=== PATIENT | male | born 1985 | race Caucasian/White ===

== ENCOUNTER 2019-10-24 13:27 | Outpatient (CLI) | payer BC, SELFPAY ==
[2019-10-24 13:36] LABS: Hematocrit 48.1 % (42.0-52.0); Mean Corpuscular HGB Conc 33.3 g/dl (32-36); Mean Corpuscular Hemoglobin 29.1 pg (26-34); Mean Corpuscular Volume 87.5 fl (80-100); Platelet Count Result 226 k/mm3 (150-375); Red Cell Distribution Width 12.5 % (11.5-14.5); White Blood Count 6.6 K/mm3 (4.5-10.0)
[2019-10-24 16:08] LABS: Potassium 4.5 mmol/L (3.4-5.0)
[2019-10-24 16:18] LABS: Alanine Aminotransferase 69 U/L (4-50); Albumin Level 4.6 g/dL (3.5-5.1); Alkaline Phosphatase 55 U/L (38-126); Aspartate Amino Transferase 48 U/L (17-59); Bilirubin,Total 0.5 mg/dL (0.2-1.3); Blood Urea Nitrogen 17 mg/dL (9-20); CRP < 0.5 mg/dL (<1.0); Calcium 9.7 mg/dL (8.4-10.2); Carbon Dioxide 26 mmol/L (22-30); Chloride 104 mmol/L (98-107); Estimated Glomerular Filt Rate > 60; Glucose 121 mg/dL (75-110); Sodium 137 mmol/L (137-145)
[2019-10-24 16:20] LABS: Erythrocyte Sedimentation Rate 4 mm/hr (0-20)
== END 2019-10-24 13:28 | disposition home or self-care (01) ==
LOC: ANHLAB 13:28
PROVIDERS: PCP Family Medicine; Visit Provider Internal Medicine
DX: M47.819 Spondylosis without myelopathy or radiculopathy, site unspecified (principal); M06.9 Rheumatoid arthritis, unspecified
CPT/HCPCS: 36415; 80053; 85027; 85652; 86140

== ENCOUNTER 2020-12-15 07:58 | Outpatient (CLI) | payer BC, SELFPAY ==
--- NOTE | ~2020-12-15 | MR_ITS ---
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 TECHNIQUE: Magnetic resonance imaging (MRI) of the sacrum and coccyx was performed without intravenou s contrast. Sequences included sagittal PD-weighted FSE; oblique axial T1-weighted FSE, T2-weighted FS FSE and T1-weighted FS FSE ; oblique coronal T2-weighted FSE, T1-weighted FSE and T2-weighted FS F SE. The study was initially ordered as a with and without MRI. The patient received 20 mL Multihance but no imaging was obtained as the patient experienced a moderate to severe contrast allergy characterize d by nausea with emesis as well as shortness of breath and stridor with difficulty with expiration. I went to see the patient. In moderate distress with facial erythema, reportedly new onset nasal conge stion with mucous production and with mildly shallow and tachypnea and respiration but still setting 98% on room air. Heart rate and rhythm were normal. Decreased breath sounds but no wheezes on auscult ation. Response was called and the patient was immediately transferred to the emergency department fo r monitored steroid and epinephrine administration. See ED note for further detail. Given the severit y of the contrast reaction, MultiHance intravenous contrast should be avoided. Would also recommend a voiding other gadolinium contrast agents even with premedication unless absolutely required with bene fits of use clearly outweighing the significant risk of potentially life-threatening contrast reactio n. COMPARISON: Sacroiliac joint radiographs dated 08/27/2018 FINDINGS: Bilateral sacroiliac spaces remain normal with no abnormal widening or narrowing . There is a tiny er osion versus more likely degenerative subarticular cystic change at the iliac side of the caudal-most left sacroiliac joint. No other erosions or abnormal subarticular marrow signal changes. Mild bilate ral lower lumbar facet osteoarthritis. Mild disc height loss at L3-L4 with annular fissure and left f oraminal zone disc extrusion resulting in moderate to severe left neural foraminal stenosis. Mild to moderate disc height loss at L4-L5 with additional broad-based central disc extrusion extending from foraminal zone to foraminal zone with disc material centrally extending up to 3 mm cephalad to and 5 mm caudal to the level of the endplates an resulting in mild central canal stenosis. There is moderat e bilateral neural foraminal stenosis at this level. Mild disc bulge at L5-S1 without central canal o r neural foraminal stenosis. 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 The bladder, prostate and visualized bowels in the pelvis are unremarkable. IMPRESSION: 1. Mild lower lumbar spondylosis with annular fissures and disc extrusions at L3-L4 and L4-L5 contrib uting to mild central canal stenosis at L4-L5 and moderate to severe neural foraminal stenosis on the left at L4-L5 and moderate bilateral neural foraminal stenosis at L4-L5. 2. Tiny likely degenerative subchondral cystic change versus chronic erosion at the inferior aspect o f the left sacroiliac joint. Otherwise normal bilateral sacroiliac joints. 3. Moderate to severe contrast reaction to MultiHance intravenous contrast. This occurred prior to ob taining contrast-enhanced imaging. Patient was transferred to the emergency department with improveme nt following administration of Benadryl, Solu-Medrol and epinephrine. See technique section for furth er detail and for recommendations regarding subsequent use of MR contrast agent. Reviewed, dictated and finalized at location A. IMPRESSION: 1. Mild lower lumbar spondylosis with annular fissures and disc extrusions at L 3-L4 and L4-L5 contributing to mild central canal steno
[2020-12-15 08:32] LABS: Estimated Glomerular Filt Rate > 60
== END 2020-12-15 07:59 | disposition home or self-care (01) ==
PROVIDERS: PCP Family Medicine; Visit Provider Internal Medicine
DX: M47.816 Spondylosis without myelopathy or radiculopathy, lumbar region (principal); M48.061 Spinal stenosis, lumbar region without neurogenic claudication
CPT/HCPCS: 72197; A9577

== ENCOUNTER 2020-12-15 09:24 | Emergency (ER) | payer BC, SELFPAY ==
[2020-12-15] VITALS (13 sets, daily range): BP systolic 128–168; BP diastolic 66–106; PULSE 72–96; RESP 9–19; O2SAT 97–100
[2020-12-15] MEDS: diphenhydrAMINE HCl INJ 50 MG/ML VIAL IV PUSH (09:30)
[2020-12-15] MEDS: methylPREDNISolone SOD SUCC 125 MG VIAL IV PUSH (09:30)
[2020-12-15] MEDS: EPINEPHrine HCL INJ 1 MG/ML AMPUL 0.3 MG IM (09:30)
--- NOTE | 2020-12-15 09:36 | ED.ALLEREA ---
HPI - Allergic Reaction General Chief complaint: Allergic Reaction Stated complaint: Unspecified Time Seen by Provider: 12/15/20 09:36 Source: patient Mode of arrival: wheelchair Limitations: no limitations History of Present Illness HPI narrative: Patient is 35 years old white male brought to the emergency room by wheelchair from the radiology department after receiving IV contrast for MRI, within few minutes patient developed trouble breathing, nasal congestion, swollen eyelids, erythematous changes of the face. Patient denies having similar symptoms in the past. History of pollen allergy. History of rheumatoid arthritis. Does not smoke or using drugs, drinks occasionally Related Data Allergies Allergy/AdvReac Type Severity Reaction Status Date / Time Iodinated Contrast Media Allergy Difficulty Verified 12/15/20 09:37 Breathing Review of Systems Review of Systems: Narrative: CONSTITUTIONAL: Denies fever, chills, or sweats. EYES: Denies visual changes, redness, or discharge. ENT: Denies rhinorrhea, congestion, sore throat, or otalgia. CARDIOVASCULAR: Denies chest pain, palpitations, or edema. RESPIRATORY: Denies cough or dyspnea. GASTROINTESTINAL: Denies abdominal pain, nausea, vomiting, or diarrhea. GENITOURINARY: Denies dysuria or hematuria. SKIN: Denies rash or itching. MUSCULOSKELETAL: Denies back pain, joint pain, or myalgia. NEUROLOGIC: Denies headache, numbness, or weakness. PSYCHIATRIC: Denies anxiety or depression. [facility] Past Medical History Medical History (Updated 12/15/20 @ 12:38 by Sanya Farris MD) Allergic Arthritis Family History Family History Father Cerebrovascular accident Social History Social History Alcohol intake: never Exam Narrative: Exam Narrative: General appearance: Well-developed, well-nourished Skin: Redness, swelling eyelids and face, Head: Normocephalic, nontraumatic Eyes: Clear conjunctiva ENT: Oropharynx normal, ears normal, nasal congestion with frequent blowing his nose Neck: Supple, nontender Chest and respiratory: Airway patent, no respiratory distress, no accessory muscle use Heart: Regular rate/rhythm Abdomen: Soft, nontender, no organomegaly, quiet bowel sounds Vascular: Normal peripheral pulses, normal capillary refill. 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 Date: 12/15/20 Time: 12:36 Vital Signs Vital signs: Vital Signs Pulse Rate 78 12/15/20 09:29 Respiratory Rate 16 12/15/20 09:29 Blood Pressure 168/106 H 12/15/20 09:29 Pulse Oximetry 98 12/15/20 09:29 Pulse Rate 96 12/15/20 11:03 Respiratory Rate 19 12/15/20 11:03 Blood Pressure 159/85 H 12/15/20 10:32 Pulse Oximetry 99 12/15/20 11:03 MDM - Allergic Reaction MDM Narrative Medical decision making narrative: Contrast allergy. IV Solu-Medrol 125 mg, IV Benadryl 50 mg, 0.3 mg of epinephrine IM. Ordered. Patient received 0.5 mg of epinephrine IM because his symptoms did not improve completely after the first 0.3. Differential Diagnosis Differential diagnosis: Likely anaphylaxis, allergic reaction and adverse reaction to drug Critical Care Time Critical Care Time Critical Care Time: Yes Total Critical Care Time: 35 Discharge Plan Discharge Clinical Impression: Adverse reaction to drug Qualifiers:
[2020-12-15] MEDS: EPINEPHrine HCL INJ 1 MG/ML AMPUL 0.5 MG IM (10:15)
--- NOTE | 2020-12-15 10:15 | PC.NURSE ---
pt states is having more congestion and difficulty breathing along with a headache. dr. garcia informed and meds given per order. at bedside.
[2020-12-15] MEDS: ACETAMINOPHEN 325 MG TABLET 650 MG PO (10:21)
== END 2020-12-15 12:50 | disposition home or self-care (01) ==
PROVIDERS: Emergency Provider Emergency Medicine; PCP Family Medicine
DX: R06.00 Dyspnea, unspecified (principal); T50.905A Adverse effect of unspecified drugs, medicaments and biological substances, initial encounter
CPT/HCPCS: 96372; 96374; 96375; 99284; A9270; J0171; J1200; J2930

== ENCOUNTER 2020-12-16 09:22 | Outpatient (CLI) | payer BC, SELFPAY ==
[2020-12-16 09:41] LABS: Basophils Percent Auto 0.1 % (0.2-1.2); Hematocrit 48.1 % (42.0-52.0); Hemoglobin 15.9 g/dL (14.0-18.0); Immature Granulocyte Absolute 0.08 K/mm3 (0.00-0.031); Immature Granulocyte Percent A 0.4 % (0-0.5); Lymphocytes Percent Auto 10.8 % (18.3-44.2); Mean Corpuscular HGB Conc 33.1 g/dl (32-36); Mean Corpuscular Hemoglobin 28.9 pg (26-34); Mean Corpuscular Volume 87.5 fl (80-100); Mean Platelet Volume 10.7 fl (7.4-10.4); Monocytes Absolute Auto 1.1 K/mm3 (0.1-0.6); Monocytes Percent Auto 5.5 % (2.6-8.5); Neutrophils Absolute Auto 16.2 K/mm3 (1.3-6.7); Neutrophils Percent Auto 83.2 % (45.5-73.1); Platelet Count Result 300 k/mm3 (150-375); White Blood Count 19.5 K/mm3 (4.5-10.0)
[2020-12-16 11:17] LABS: Erythrocyte Sedimentation Rate 3 mm/hr (0-20)
[2020-12-20 19:23] LABS: CRP, High Sensitivity 0.6 mg/L (***)
== END 2020-12-16 09:23 | disposition home or self-care (01) ==
PROVIDERS: PCP Family Medicine; Visit Provider Internal Medicine
DX: M47.819 Spondylosis without myelopathy or radiculopathy, site unspecified (principal); Z71.89 Other specified counseling; Z79.899 Other long term (current) drug therapy
CPT/HCPCS: 36415; 85025; 85652; 86141

== ENCOUNTER 2020-12-20 08:58 | Outpatient (CLI) | payer BC, SELFPAY ==
[2020-12-20 14:30] LABS: Hepatitis B Surface Antigen Negative (Negative)
[2020-12-20 14:50] LABS: Hepatitis B Surface Anti Res Positive; Hepatitis C Virus Antibody Negative (Negative)
[2020-12-23 12:03] LABS: NIL 0.03 IU/mL; Quantiferon TB Plus, 1T NEGATIVE (NEGATIVE); TB1-NIL <0.00 IU/mL
== END 2020-12-20 08:59 | disposition home or self-care (01) ==
PROVIDERS: PCP Family Medicine; Visit Provider Internal Medicine
DX: M47.819 Spondylosis without myelopathy or radiculopathy, site unspecified (principal); Z11.59 Encounter for screening for other viral diseases
CPT/HCPCS: 36415; 86480; 86706; 86803; 87340

== ENCOUNTER 2022-11-17 09:24 | Outpatient (CLI) | payer BC, SELFPAY ==
[2022-11-17 11:09] LABS: Alanine Aminotransferase 37 U/L (6-50); Albumin Level 4.6 g/dL (3.5-5.1); Alkaline Phosphatase 47 U/L (38-126); Anion Gap 6 mmol/L (8-16); Aspartate Amino Transferase 35 U/L (17-59); Bilirubin,Total 0.5 mg/dL (0.2-1.3); Blood Urea Nitrogen 19 mg/dL (9-20); Calcium 9.1 mg/dL (8.4-10.2); Carbon Dioxide 30 mmol/L (22-30); Chloride 103 mmol/L (98-107); Cholesterol 128 mg/dL (0-200); Estimated Glomerular Filt Rate > 60; Glucose 118 mg/dL (65-110); HDL Direct 41 mg/dL; Potassium 4.1 mmol/L (3.4-5.0); Sodium 139 mmol/L (137-145); Triglycerides 139 mg/dL (<150)
[2022-11-17 11:19] LABS: LDL Cholesterol Direct 66 mg/dL
[2022-11-17 12:34] LABS: Hemoglobin A1C 5.4 % (<5.7)
== END 2022-11-17 09:25 | disposition home or self-care (01) ==
LOC: ANHLAB 09:26
PROVIDERS: Nurse Practitioner Family; PCP Family Medicine Adolescent Medicine; Visit Provider Internal Medicine Hematology & Oncology
DX: E11.9 Type 2 diabetes mellitus without complications (principal)
CPT/HCPCS: 36415; 80053; 80061; 82607; 83036; 86337

== ENCOUNTER 2023-10-09 15:15 | Emergency (ER) | payer BC, SELFPAY ==
--- NOTE | ~2023-10-09 | CT_ITS ---
EXAMINATION: CT facial bones wo con DATE: 10/09/2023 15:39 INDICATION: trauma . TECHNIQUE: Computed tomography (CT) of the facial bones and maxillofacial region was performed with i ntravenous contrast. Automated exposure control and iterative reconstruction technique were employed. The dose-length product was 585.80 mGy-cm. COMPARISON: None. FINDINGS: Soft Tissues: Scattered areas of soft tissue swelling over the brow and chin. Facial bones: No acute fracture. No lytic or blastic process. Eyes: The globes are intact. The soft tissue planes of the orbits are maintained. Paranasal Sinuses: Left maxillary retention cyst/polyp, left frontal, left anterior ethmoid, and rig ht maxillary mucosal thickening, the remaining aerated spaces are clear. Foreign Bodies: No radiopaque foreign bodies. Other Findings: Dental caries. IMPRESSION: No evidence of acute facial bone fracture. Reviewed, dictated and finalized at location K.
[2023-10-09 15:15] VITALS: BP 140/91; PULSE 69; RESP 18; TEMP 36.6; O2SAT 99
--- NOTE | 2023-10-09 15:20 | ED.GENADULT ---
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 He denies other injuries. Related Data Allergies Allergy/AdvReac Type Severity Reaction Status Date / Time secukinumab [From Cosentyx] Allergy Intermediate Swelling Verified 08/30/23 10:03 Iodinated Contrast Media Allergy Difficulty Verified 08/30/23 10:03 Breathing Review of Systems Review of Systems: All systems reviewed & are unremarkable except as noted in HPI and below PMFSH Past Medical History Medical History Allergic Arthritis Encounter for screening for other viral diseases Family History Family History Father Cerebrovascular accident Social History Social History Smoking packs per day: 0.5 Smoking cigarettes per day: 10.0 Years smoked: 10 Smoking pack-years: 5.00 Smoking status: Former smoker Tobacco type: cigarettes Smokeless tobacco user: chewing tobacco Alcohol intake: never Lack of Transportation: No Lack of Food: Never True Current Housing: I Have Housing Concerned About Future Housing: No Difficulty Paying Gas/Electric Bills: No Difficulty Paying for Meds: YES Currently Unemployed: No Education: High School Diploma/GED Difficulty w/ Childcare or Family Care: No Spiritual care concerns: No Exam Narrative: General appearance: Well-developed, well-nourished Skin: Normal color Head: Normocephalic, nontraumatic Eyes: Clear conjunctiva ENT: Oropharynx normal, ears normal, nose normal , slight bruises and the inferior area of the left side of the jaw, patient able to open and close mouth without restriction also to move the jaw in different directions without any restriction Neck: Supple, nontender Chest and respiratory: Airway patent, no respiratory distress, no accessory muscle use Heart: Regular rate/rhythm Abdomen: Soft, nontender, no organomegaly, quiet bowel sounds Vascular: Normal peripheral pulses, normal capillary refill. 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 Critical Care Time Critical Care Time Critical Care Time: No Discharge Plan Discharge Clinical Impression: Contusion of jaw Patient Disposition: Home, Self-Care Condition: Stable Instructions: Facial Contusion (ED) Additional Instructions: Return if symptoms are worsening , call your family physician for appointment, take Tylenol as as needed for aches and pain, continue home medications., ibuprofen 600 every 6 hours as needed Prescriptions: No Action metformin 500 mg tablet 500 mg PO DAILY Qty: 90 3RF sulfasalazine 500 mg tablet,delayed release (DR/EC) See Rx Instructions .ROUTE .COMPLEX Qty: 60 0RF Dose Instruction: TAKE ONE TABLET BY MOUTH TWICE A DAY Rx Instructions: TAKE ONE TABLET BY MOUTH TWICE A DAY Enbrel Mini 50 mg/mL (1 mL) cartridge See Rx Instructions .ROUTE .COMPLEX Qty: 4 11RF Dose Instruction: INJECT 50 MG (1 ML) UNDER THE SKIN WEEKLY Rx Instructions: INJECT 50 MG (1 ML) U
== END 2023-10-09 15:57 | disposition home or self-care (01) ==
PROVIDERS: Emergency Provider Emergency Medicine; PCP Nurse Practitioner Family
DX: S00.83XA Contusion of other part of head, initial encounter (principal); W22.8XXA Striking against or struck by other objects, initial encounter; F17.220 Nicotine dependence, chewing tobacco, uncomplicated
CPT/HCPCS: 70486; 99284

== ENCOUNTER 2024-04-22 16:16 | Outpatient (CLI) | payer BC, SELFPAY ==
[2024-04-22 16:28] LABS: Basophils Absolute Auto 0.1 K/mm3 (0.0-0.1); Basophils Percent Auto 0.9 % (0.2-1.2); Eosinophils Absolute Auto 0.3 K/mm3 (0-0.3); Eosinophils Percent Auto 4.3 % (0-4.4); Hematocrit 50.1 % (42.0-52.0); Hemoglobin 16.7 g/dL (14.0-18.0); Immature Granulocyte Absolute 0.01 K/mm3 (0.00-0.031); Immature Granulocyte Percent A 0.1 % (0-0.5); Lymphocytes Absolute Auto 4.11 K/mm3 (0.9-3.2); Lymphocytes Percent Auto 53.4 % (18.3-44.2); Mean Corpuscular HGB Conc 33.3 g/dl (32-36); Mean Corpuscular Hemoglobin 29.5 pg (26-34); Mean Corpuscular Volume 88.4 fl (80-100); Mean Platelet Volume 10.6 fl (7.4-10.4); Monocytes Absolute Auto 0.6 K/mm3 (0.1-0.6); Monocytes Percent Auto 8.1 % (2.6-8.5); Neutrophils Absolute Auto 2.6 K/mm3 (1.3-6.7); Neutrophils Percent Auto 33.2 % (45.5-73.1); Platelet Count Result 234 k/mm3 (150-375); Red Blood Count 5.67 M/mm3 (4.6-6.20); Red Cell Distribution Width 13.1 % (11.5-14.5); White Blood Count 7.7 K/mm3 (4.5-10.0)
[2024-04-22 16:36] LABS: Hemoglobin A1C 6.3 % (<5.7)
[2024-04-22 16:56] LABS: Alanine Aminotransferase 53 U/L (6-50); Albumin Level 4.3 g/dL (3.5-5.1); Alkaline Phosphatase 46 U/L (38-126); Anion Gap 5 mmol/L (4-12); Aspartate Amino Transferase 45 U/L (17-59); Bilirubin,Total 0.8 mg/dL (0.2-1.3); Blood Urea Nitrogen 12 mg/dL (9-20); Calcium 9.2 mg/dL (8.4-10.2); Carbon Dioxide 30 mmol/L (22-30); Chloride 105 mmol/L (98-107); Cholesterol 159 mg/dL (0-200); Estimated Glomerular Filt Rate > 60; Glucose 106 mg/dL (65-110); HDL Direct 46 mg/dL; Sodium 140 mmol/L (137-145); Triglycerides 286 mg/dL (<150)
[2024-04-22 17:10] LABS: LDL Cholesterol Direct 78 mg/dL
== END 2024-04-22 16:17 | disposition home or self-care (01) ==
LOC: ANHLAB 16:17
PROVIDERS: PCP Nurse Practitioner Family; Visit Provider Nurse Practitioner Family
DX: E11.9 Type 2 diabetes mellitus without complications (principal)
CPT/HCPCS: 36415; 80053; 80061; 82607; 83036; 85025

== ENCOUNTER 2024-05-13 11:32 | Outpatient (CLI) | payer BC, SELFPAY ==
[2024-05-13 12:19] LABS: Basophils Absolute Auto 0.1 K/mm3 (0.0-0.1); Basophils Percent Auto 0.8 % (0.2-1.2); Eosinophils Absolute Auto 0.2 K/mm3 (0-0.3); Eosinophils Percent Auto 2.3 % (0-4.4); Hematocrit 47.5 % (42.0-52.0); Hemoglobin 15.6 g/dL (14.0-18.0); Immature Granulocyte Absolute 0.03 K/mm3 (0.00-0.031); Immature Granulocyte Percent A 0.3 % (0-0.5); Lymphocytes Absolute Auto 3.91 K/mm3 (0.9-3.2); Lymphocytes Percent Auto 37.9 % (18.3-44.2); Mean Corpuscular HGB Conc 32.8 g/dl (32-36); Mean Corpuscular Hemoglobin 29.2 pg (26-34); Mean Platelet Volume 10.9 fl (7.4-10.4); Monocytes Absolute Auto 1.1 K/mm3 (0.1-0.6); Monocytes Percent Auto 10.2 % (2.6-8.5); Neutrophils Percent Auto 48.5 % (45.5-73.1); Platelet Count Result 239 k/mm3 (150-375); Red Blood Count 5.34 M/mm3 (4.6-6.20); Red Cell Distribution Width 13.2 % (11.5-14.5); White Blood Count 10.3 K/mm3 (4.5-10.0)
[2024-05-13 12:33] LABS: Alanine Aminotransferase 50 U/L (6-50); Albumin Level 4.9 g/dL (3.5-5.1); Alkaline Phosphatase 57 U/L (38-126); Anion Gap 4 mmol/L (4-12); Aspartate Amino Transferase 39 U/L (17-59); Blood Urea Nitrogen 16 mg/dL (9-20); Calcium 9.6 mg/dL (8.4-10.2); Carbon Dioxide 29 mmol/L (22-30); Chloride 105 mmol/L (98-107); Estimated Glomerular Filt Rate > 60; Glucose 111 mg/dL (65-110); Potassium 4.6 mmol/L (3.4-5.0); Sodium 138 mmol/L (137-145); Uric Acid 7.7 mg/dL (3.5-8.5)
== END 2024-05-13 11:33 | disposition home or self-care (01) ==
LOC: ANHLAB 11:33
PROVIDERS: PCP Nurse Practitioner Family; Visit Provider Nurse Practitioner Family
DX: M10.9 Gout, unspecified (principal)
CPT/HCPCS: 36415; 80053; 84550; 85025

== ENCOUNTER 2024-09-08 15:44 | Outpatient (CLI) | payer BC, SELFPAY ==
[2024-09-08 16:22] LABS: Basophils Absolute Auto 0.1 K/mm3 (0.0-0.1); Eosinophils Absolute Auto 0.5 K/mm3 (0-0.3); Eosinophils Percent Auto 8.6 % (0-4.4); Hemoglobin 16.2 g/dL (14.0-18.0); Immature Granulocyte Absolute 0.01 K/mm3 (0.00-0.031); Immature Granulocyte Percent A 0.2 % (0-0.5); Lymphocytes Absolute Auto 2.86 K/mm3 (0.9-3.2); Lymphocytes Percent Auto 45.5 % (18.3-44.2); Mean Corpuscular HGB Conc 33.1 g/dl (32-36); Mean Corpuscular Hemoglobin 29.8 pg (26-34); Mean Corpuscular Volume 90.2 fl (80-100); Mean Platelet Volume 10.8 fl (7.4-10.4); Monocytes Absolute Auto 0.6 K/mm3 (0.1-0.6); Neutrophils Absolute Auto 2.2 K/mm3 (1.3-6.7); Neutrophils Percent Auto 34.7 % (45.5-73.1); Platelet Count Result 223 k/mm3 (150-375); Red Blood Count 5.43 M/mm3 (4.6-6.20); White Blood Count 6.3 K/mm3 (4.5-10.0)
[2024-09-08 16:25] LABS: Add Urine Microscopic? NO; Appearance Urine Clear (Clear); Bilirubin Urine Negative (Negative); Blood Urine Negative (Negative); Color Urine Yellow (Yellow); Glucose Urine UA Negative (Negative); Ketones Urine Negative (Negative); Leukocyte Esterase Ur Negative LEU/UL (Negative); Nitrate Urine Negative (Negative); Protein Urine Negative (Negative); Urobilinogen Urine 0.2 mg/dL (<2.0)
[2024-09-08 16:45] LABS: Alanine Aminotransferase 76 U/L (6-50); Albumin Level 4.9 g/dL (3.5-5.1); Alkaline Phosphatase 46 U/L (38-126); Anion Gap 9 mmol/L (4-12); Aspartate Amino Transferase 44 U/L (17-59); Bilirubin,Total 0.6 mg/dL (0.2-1.3); Blood Urea Nitrogen 16 mg/dL (9-20); CRP < 0.5 mg/dL (<1.0); Calcium 9.7 mg/dL (8.4-10.2); Carbon Dioxide 28 mmol/L (22-30); Chloride 104 mmol/L (98-107); Estimated Glomerular Filt Rate > 60; Glucose 95 mg/dL (65-110); Phosphorus 3.9 mg/dL (2.5-4.5); Potassium 4.3 mmol/L (3.4-5.0); Sodium 141 mmol/L (137-145)
[2024-09-08 17:17] LABS: Erythrocyte Sedimentation Rate 4 mm/hr (0-20)
--- OUTSIDE RECORDS SUMMARY | 2024-09-08 17:28 | XMS_ITS | Encounter Summary ---
Author Organization [facility] Address [address] [place] [address] Care Team Providers Care Animal Trainer Name Role Phone Cortez Hernandez MD Primary Care Provider Encounter Details Date Type Department Care Team (Late st Contact Info) Description 03/15/[address] 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
--- OUTSIDE RECORDS SUMMARY | 2024-09-08 17:28 | XMS_ITS ---
Author Organization Unknown Address [address], [place] [id number] Phone Care Team Providers Care Metal Ceiling Builder Name Role Phone Joanna KRAMER Attending Unavailab le Immunization Immunization Date Status Additional Notes Code Code System Hep B, adolescent/high risk 12/29/1997 Completed 42 CVX Hep B, adolescent/high risk 12/01/1997 Completed 42 CVX Td (adult), 2 Lf tetanus toxoid, preservative free, adsorbed 10/27/1997 Completed 09 CVX Hep B, adolescent or pediatric 06/01/1998 Completed 08 CVX MMR 10/26/1992 Completed 03 CVX MMR 06/06/1984 Completed 03 CVX OPV 12/26/1988 Completed 02 CVX OPV 09/10/1984 Completed 02 CVX OPV 1983 Completed 02 CVX OPV 1983 Completed 02 CVX OPV 1983 Completed 02 CVX DTP 12/26/1988 Completed 01 CVX DTP 09/10/1984 Completed CVX DTP 1983 Completed CVX DTP 1983 Completed CVX DTP 1983 Completed 01 CVX Results [facility] CHEST - Completed: 02/10/2022 12:45 LOINC: Exam: Chest x-rayNo comparis onINDICATION: PreemploymentTECHNIQUE: One viewFINDINGS: Normal heart and pulmonary vessel size. The lungs are clear. No pleural fluid. Mild dextroscoliosis is partially visualized and centered at the thoracolumbar junction.IMPRESSION: No acute chest findings. Created and Electronically Signed by:Ananth Palafox MD02/10/2022 13:28 Social History Type Status Start Date End Date Code Code Syst em Smoking History Unknown if ever smoked [id number] Sex Male Hospital Discharge Instructions Should you have any questions prior to discharge, please contact a member of your healthcare team. If you have left the hospital and have any questions, please contact your primary care physician. Reason For Referral No Data Found Plan of Treatment No Data Found Encounters Encounter Diagnosis Start Date Code Code Sys tem History and physical examination, pre-employment 02/10 [id number] SNOMED-CT Personal Care Team Section Performer Name Performer Role Active Date Inactive Da te Other Physician PCP - Primary care physician 1
--- OUTSIDE RECORDS SUMMARY | 2024-09-08 17:28 | XMS_ITS | Clinical Summary ---
Author Organization [facility] Address [address] [place] [address] Care Team Providers Care Educational Institution President Name Role Phone Cortez Hernandez MD Primary Care Provider Allergies No known active allergies Medications diclofenac XR 100 MG 24 hr tablet Take 100 mg by mouth daily. 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 Gender Identity Male 12/26/2019 2:37 PM CDT Sexual Orientation Not on file Last Filed Vital Signs Vital Sign Reading Time Taken Comments Blood Pressure 155/86 01/05/2020 9:25 AM CDT Pulse 59 01/05/2020 9:25 AM CDT Temperature 36.7 C (98.1 F) 01/05/2020 9:25 AM CDT Respiratory Rate 16 01/05/2020 9:25 AM CDT Oxygen Saturation 98% 01/05/2020 9:25 AM CDT Inhaled Oxygen Concentration - - Weight 115.2 kg (254 lb) 12/31/2019 1:15 PM CDT Height 175.3 cm (5' 9 ) 12/31/2019 1:15 PM CDT Body Mass Index 37.51 12/31/2019 1:15 PM CDT Plan of Treatment Health Maintenance Due Date Last Done Comments Annual Physical 1986 Hepatitis C 2001 DTaP, Tdap and Td Vaccines (1 - Tdap) 2002 12/26/1988, 09/10/1984, 1983, Additional history exists Hepatitis B Vaccines (1 of 3 - 19+ 3-dose series) 2002 COVID-19 Vaccine (2023- season) 2024 HPV Vaccines Aged Out No longer eligi ble based on patient's age to complete this topic Meningococcal B Vaccine Aged Out No l onger eligible based on patient's age to complete this topic Meningococcal Vaccine Aged Out No karina napoleon eligible based on patient's age to complete this topic Pneumococcal Vaccine: Pediatrics (0 to 5 Years) and At-Risk Patients (6 to 49 Years) Aged Out No longer eligible based on patient's age to complete this topic RSV Immunizations Under 20 Months Aged Out No longer eligible based on patient's age to complete this topic Insurance [facility] Care Teams Educational Institution President Relationship Specialty Start Date End Date Cortez Hernandez MD [address] [place] [address] [place] [address] PCP - General FAMILY PRACTICE 12/22/19
--- OUTSIDE RECORDS SUMMARY | 2024-09-08 17:28 | XMS_ITS ---
Author Organization Unknown Address [address] [place], [place] [phone] Phone Care Team Providers Care Fruit And Vegetable Parer Name Role Phone TISHA MCCORMACK WILLIAMS Attending Unavailable OTHER Primary Unavailable Immunization Immunization Date Status Additional Notes Code [...] CVX DTP 1983 Completed 01 CVX Results [facility] CHEST - Completed: 07/26/2022 12:52 LOINC: EXAM: [facility] CHESTDATE: 07/26/2022 Comparison 02/10/2022INDICATION: PreemploymentTECHNIQUE: One viewFINDINGS: Normal heart and pulmonary vessel size. The lungs are clear. No pleural fluid. No acute bone findings.IMPRESSION: No acute findings. Created and Electronically Signed by:Ananth Palafox MD07/26/2022 13:01 Social History Type Status Start Date End Date Code Code Syst em Smoking History Unknown if ever smoked [id number] Sex Male Hospital Discharge Instructions [...] Sys tem History and physical examination, pre-employment 07/26 [id number] SNOMED-CT Personal Care Team Section Performer Name Performer Role Active Date Inactive Da te Other Physician PCP - Primary care physician 1
[2024-09-10 15:58] LABS: NIL 0.01 IU/mL; Quantiferon TB Plus, 1T NEGATIVE (NEGATIVE); TB2-NIL 0.01 IU/mL
== END 2024-09-08 15:45 | disposition home or self-care (01) ==
LOC: ANHLAB 15:46
PROVIDERS: PCP Nurse Practitioner Family; Visit Provider Internal Medicine
DX: M45.9 Ankylosing spondylitis of unspecified sites in spine (principal)
CPT/HCPCS: 36415; 80053; 81003; 84100; 85025; 85652; 86140; 86480

== ENCOUNTER 2025-05-20 10:44 | Outpatient (CLI) | payer BC, SELFPAY ==
--- OUTSIDE RECORDS SUMMARY | 2025-05-20 10:48 | XMS_ITS | Encounter Summary ---
Author Organization [facility] Address [address] [place] [address] Care Team Providers Care Hat Finisher Name Role Phone Cortez Hernandez MD Primary Care Provider [phone] Encounter Details Date Type Department Care Team (Late st Contact Info) Description 03/15/[address] 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
--- OUTSIDE RECORDS SUMMARY | 2025-05-20 10:48 | XMS_ITS | Clinical Summary ---
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 Gender Identity Male 12/26/2019 2:37 PM CDT [...] 1:15 PM CDT Height 175.3 cm (5' 9) 12/31/2019 1:15 PM CDT Body Mass Index 37.51 12/31/2019 1:15 PM CDT Plan of Treatment Health Maintenance Due Date Last Done Comments Annual Physical 1986 Hepatitis C 2001 DTaP, Tdap and Td Vaccines (1 - Tdap) 2002 12/26/1988, 09/10/1984, 1983, Additional history exists Hepatitis B Vaccines (1 of 3 - 19+ 3-dose series) 2002 HPV Vaccines (1 - 3-dose SCDM series) 2010 COVID-19 Vaccine ( - season) 2025 Influenza Adult (#1) 2025 Hepatitis A Vaccines Aged Out No long er eligible based on patient's age to complete [...] patient's age to complete this topic Insurance [facility] Care Teams Instructor Of Nursing Relationship Specialty Start Date End Date Cortez Hernandez MD [address] [place] [address] PCP - General FAMILY PRACTICE 12/22/19
[2025-05-20 11:22] LABS: Hemoglobin A1C 6.2 % (<5.7)
[2025-05-20 11:35] LABS: Alanine Aminotransferase 76 U/L (6-50); Albumin Level 4.7 g/dL (3.5-5.1); Alkaline Phosphatase 49 U/L (38-126); Anion Gap 7 mmol/L (4-12); Aspartate Amino Transferase 52 U/L (17-59); Bilirubin,Total 0.8 mg/dL (0.2-1.3); Blood Urea Nitrogen 16 mg/dL (9-20); Calcium 9.7 mg/dL (8.4-10.2); Carbon Dioxide 28 mmol/L (22-30); Chloride 105 mmol/L (98-107); Cholesterol 163 mg/dL (0-200); Estimated Glomerular Filt Rate 57; Glucose 122 mg/dL (65-110); HDL Direct 47 mg/dL; Potassium 5.3 mmol/L (3.4-5.0); Sodium 140 mmol/L (137-145); Total Protein 8.2 g/dL (6.3-8.2); Triglycerides 151 mg/dL (<150)
[2025-05-20 11:42] LABS: MALB Creatinine Ratio 20.9 mg/g (0-30)
== END 2025-05-20 10:45 | disposition home or self-care (01) ==
LOC: ANHLAB 10:46
PROVIDERS: PCP Nurse Practitioner Family; Visit Provider Nurse Practitioner Family
DX: G47.30 Sleep apnea, unspecified (principal); E11.9 Type 2 diabetes mellitus without complications; M45.9 Ankylosing spondylitis of unspecified sites in spine
CPT/HCPCS: 36415; 80053; 80061; 82043; 83036